=== PATIENT | female | born 1955 | race Caucasian/White ===

== ENCOUNTER → 2016-06-10 | Outpatient (CLI) | payer OTHER, BC ==
[~2016-06-10] MED LIST: ATOR40TA64 PO; DOCU-175 PO; HYDR-4246 PO; NAPR220T PO; OMEG100016 PO; TRIA1CAP6 PO
--- NOTE | 2016-06-11 09:30 | DI ---
Indication: ITS.REASON: S89.92XA twisting injury with medial knee pain for one to two months. PROCEDURE: MRI KNEE LEFT W/O CONTRAST: Encounter: Initial Comparison: Left knee radiographs dated May 21, 2016 Technique: Multiplanar multisequence MR imaging of the left knee was performed without contrast. Findings: The lateral meniscus is intact. There is an extensive tear of the posterior root of the medial meniscus with mild extrusion. The ACL and PCL are intact. The MCL and lateral collateral ligament complex are intact. The extensor mechanism is maintained. Bone marrow edema within the central and medial tibial plateau. No discrete fracture line identified. The cartilage of the lateral compartment is maintained. Medial compartment cartilage is intact. Patellofemoral compartment shows mild thinning in the median ridge and medial facet. No joint effusion or Cross's cyst. Muscular signal intensity is grossly normal. Impression: Posterior root tear of the medial meniscus. .
== END ==
LOC: IMA 18:34
PROVIDERS: ATTEND Orthopaedic Surgery
DX: S83.242A Other tear of medial meniscus, current injury, left knee, initial encounter (principal); X50.1XXA Overexertion from prolonged static or awkward postures, initial encounter; Y93.39 Activity, other involving climbing, rappelling and jumping off; Y92.530 Ambulatory surgery center as the place of occurrence of the external cause; Y99.0 Civilian activity done for income or pay

== ENCOUNTER → 2016-07-16 | Outpatient (CLI) | payer OTHER, BC ==
[2016-07-16 16:06] LABS: BASOPHILS % (AUTO) 0.6 % (0-2); EOSINOPHILS # (AUTO) 0.1 T/MM3 (0-0.5); EOSINOPHILS % (AUTO) 1.2 % (0-4); HGB - HEMOGLOBIN 12.8 GM/DL (12-16); IMMATURE GRANULOCYTE # (AUTO) 0.01 T/MM3 (0.00-0.03); IMMATURE GRANULOCYTE % (AUTO) 0.2 % (0.0-0.5); LYMPHOCYTES # (AUTO) 2.1 T/MM3 (1-4.8); LYMPHOCYTES % (AUTO) 32.5 % (23-45); MEAN CORPUSCULAR HGB 29.7 UUG (26-34); MEAN CORPUSCULAR HGB CONC(MCHC 32.8 GM/DL (31-37); MEAN CORPUSCULAR VOLUME 90.5 UM3 (80-100); MEAN PLATELET VOLUME 12.1 UM3 (9.4-12.4); MONOCYTES # (AUTO) 0.4 T/MM3 (0-0.8); MONOCYTES % (AUTO) 5.5 % (0-9.0); RED BLOOD COUNT 4.31 M/MM3 (4.00-5.20); WBC - WHITE BLOOD COUNT 6.6 T/MM3 (4.5-11.0)
[2016-07-16 16:11] LABS: ANION GAP 11 MEQ/L (5-15); BUN/CREATININE RATIO 17 RATIO (6-26); CALCIUM 9.8 MG/DL (8.4-10.2); CHLORIDE 100 MEQ/L (98-107); CO2 - CARBON DIOXIDE 30 MEQ/L (22-30); CREATININE 1.1 MG/DL (0.7-1.2); GLOMERULAR FILTRATION RATE 50; GLUCOSE 97 MG/DL (65-110); POTASSIUM 4.3 MEQ/L (3.6-5); SODIUM 141 MEQ/L (134-144)
== END ==
LOC: IMA 15:35
PROVIDERS: ATTEND Orthopaedic Surgery
DX: Z01.812 Encounter for preprocedural laboratory examination (principal)
CPT/HCPCS: 36415; 80048; 85025; 93005

== ENCOUNTER 2016-08-05 08:55 | Day surgery (SDC) | payer OTHER, BC ==
[2016-08-05] VITALS (13 sets, daily range): BP systolic 119–161; BP diastolic 57–78; PULSE 60–98; RESP 11–18; TEMP 96.9–97.8; O2SAT 97–100; Ht 149.9 cm; Wt 68.8 kg
[~2016-08-05] VITALS: Ht 149.9 cm; Wt 68.8 kg
[~2016-08-05 08:55] MED LIST changes: +ACET-2723 PO; +CEFAZOLIN 1 GRAM INJECTION IV ONE; -DOCU-175 PO; -HYDR-4246 PO; +LIDOCAINE 1% (10mg/ml) 2ml SDV INJ ONE; +LR 1,000 ML IV SCH
--- OUTSIDE RECORDS SUMMARY | 2016-08-05 09:00 | XMS REPORT | Continuity of Care Document ---
Author Author [facility] Organization [facility] Address Unknown Phone Unavailable Support Name Relationship Address Phone JAMIE MONZON MD Caregiver [address] [facility] [address] [place] [address] Unavailable SUE COLE DO Caregiver [address] [place] [address] Unavailable JADON GIANG Next Of Kin [address] [place] [id number] C Insurance Providers Guarantor Brandon Giang Address [address] [place] [address] C Email [email or web address] Policy Number [id number] Subscriber's Name Brandon Giang Relationship 18 Self Advance Directives Directive Response Recorded Date/Time Advanced Directives Type None 05/21/16 1:10pm Chief Complaint and Reason for Visit Chief Complaint Lower Extremity Pain Reason for Visit Left knee pain Problems Active Problems Medical Problem Onset Date Status Needle stick injury Unknown Acute Past Problems Medical Problem Onset Date Left knee pain Unknown Medications Current Home Medications Medication Dose Units Route Directions Days Qty Instructions Start Date Atorvastatin Calcium 40 Mg Tablet 40 Tab Oral Bedtime 05/21/16 Docusate Sodium 100 Mg Capsule 100 Cap Oral Daily 05/21/16 Hydrocodone/Acetaminophen ([place] 5-325 Tablet) 5-325 Tablet 1 Tab Oral Every 6 Hours as needed for Pain 12 Tablet 05/21/16 Naproxen Sodium (Naproxen 220MG) 220 Mg Tablet 220 Mg Oral Every 12 Hours as needed for Prn Orders 05/21/16 [place]-3 Fatty Acids ([place]-3) 1,000 Mg Capsule 1,200 Mg Oral Daily 01/22/08 Triamterene/Hydrochlorothiazid (Triamterene-Hctz 37.5-25 Mg Cp) 1 Each Capsule 0.5 Tab Oral Qd 05/21/16 Social History Social History Problem Response Recorded Date/Time Onset Date Status Hx Substance Use No 05/21/2016 1:30pm Not Applicable Not Applicable Hx Alcohol Use Y ONE/WK 05/21/2016 1:30pm Not Applicable Not Applicable Query Response Start Date Stop Date Smoking Status Never smoker Hospital Discharge Instructions No hospital discharge instructions. Plan of Care Discharge Date 05/21/16 2:10pm Disposition 01 DISCHARGED HOME, SELF-CARE Condition at Discharge Stable Instructions/Education Provided Knee Pain (ED) Prescriptions See Medication Section Referrals JAMIE MONZON MD Address: [address] [place] [address] [place] [address] Additional Instructions/Education Continue to ice and elevate the left leg. I do want you to take the Naproxen on a schedule and use the [place] as needed for severe pain. Call Dr Monzon's office for follow up this week or follow up with worklaredo's comp provider. If any other issues/concerns then return to ER for reevaluation. Care Plan and Goals Physician Care Plan Problem:Left Knee Pain Goal: Follow up with primary care provider Instructions: Take medications and follow care plan as discussed/written Functional Status No functional status results. Allergies, Adverse Reactions, Alerts Allergen Type Severity Reaction Status Last Updated No Known Drug Allergies Allergy Unknown Active 01/04/13 Immunizations Query Response on File Recorded Date/Time Hx Influenza Vaccination Y 200701/20/08 1:17pm Hx Pneumococcal Vaccination No 01/20/08 1:17pm Hx Influenza Vaccination Y 200701/20/08 1:17pm Influenza Vaccine Hx 12/201505/21/16 1:36pm Vital Signs Acute Vital Signs Vital Response Date/Time Temperature (Fahrenheit) 98.2 deg F (96.8 - 99.1) 05/21/2016 2:10pm Temperature (Calculated Celsius) 36.21786 degrees C (36.0 - 37.3) 05/21/2016 2:10pm Pulse Rate (adult) 80 bpm (60 - 100) 05/21/2016 2:10pm Respiratory Rate 16 breaths/min (10 - 20) 05/21/2016 2:10pm O2 Sat by Pulse Oximetry 95 % (90 - 100) 05/21/2016 2:10pm Blood Pressure 149/69 mm Hg 05/21/2016 2:10pm Height (Feet) 4 feet 05/21/2016 1:21pm Height (Inches) 10.00 inches 05/21/2016 1:21pm Weight (Kilograms) 67.300 kg 05/21/2016 1:21pm Body Mass Index (BMI) 31.0 05/21/2016 1:21pm Results Laboratory Results Test Name Result Units Flags Reference Collection Date/Time Result Date/ Time Comments White Blood Count 5.9 T/MM3 4.5-11.0 03/28/2016 8:03am 03/28/2016 8: 09am Red Blood Count 4.61 M/MM3 4.00-5.20 03/28/2016 8:0303/28/2016 8: 09am Hemoglobin 13.6 GM/DL 12-16 03/28/2016 8:03am 03/28/2016 8:09am Hematocrit 41.8 % 36-46 03/28/2016 8:0303/28/2016 8:09am Mean Corpuscular Volume 90.7 UM3 80-100 03/28/2016 8:03/28/2016 8: 09am Mean Corpuscular Hemoglobin 29.5 UUG 26-34 03/28/2016 8:032016 8:09am Mean Corpuscular Hemoglobin Concent 32.5 GM/DL 31-37 03/28/2016 8:03am 03/28/2016 8:09am RDW Standard Deviation 43.0 FL 36.9-50.2 03/28/2016 8:03am 03/28/2016 8 :09am Platelet Count 252 T/MM3 130-400 03/28/2016 8:0303/28/2016 8:09am Mean Platelet Volume 11.7 UM3 9.4-12.4 03/28/2016 8:03/28/2016 8: 09am Neutrophils (%) (Auto) 59.7 % 33-66 03/28/2016 8:03am 03/28/2016 8: 09am Lymphocytes (%) (Auto) 31.2 % 23-45 03/28/2016 8:0303/28/2016 8: 09am Monocytes (%) (Auto) 6.9 % 0-9.0 03/28/2016 8:03am 03/28/2016 8:09am Eosinophils (%) (Auto) 1.5 % 0-4 03/28/2016 8:03am 03/28/2016 8:09am Basophils (%) (Auto) 0.5 % 0-2 03/28/2016 8:03am 03/28/2016 8:09am Immature Granulocyte % (Auto) 0.2 % 0.0-0.5 03/28/2016 8:03am 2016 8:09am Absolute Neutrophils (auto) 3.5 T/MM3 1.8-7.7 03/28/2016 8:03am 2016 8:09am Absolute Lymphocytes (auto) 1.9 T/MM3 1-4.8 03/28/2016 8:03am 2016 8:09am Absolute Monocytes (auto) 0.4 T/MM3 0-0.8 03/28/2016 8:03am 03/28/2016 8:09am Absolute Eosinophils (auto) 0.1 T/MM3 0-0.5 03/28/2016 8:03am 2016 8:09am Absolute Basophils (auto) 0.0 T/MM3 0-0.2 03/28/2016 8:03am 03/28/2016 8:09am Absolute Immature Granulocyte (auto 0.01 T/MM3 0.00-0.03 03/28/2016 8: 03am 03/28/2016 8:09am Icterus Index < 2 0-7 03/28/2016 8:03am 03/28/2016 8:21am Chemistry Specimen Hemolysis < 15 0-25 03/28/2016 8:03am 03/28/2016 8 :21am 0-25: Specimen Exhibited No Hemolysis. Turbidity < 20 0-20 03/28/2016 8:03am 03/28/2016 8:21am Sodium Level 141 MEQ/L 134-144 03/28/2016 8:03am 03/28/2016 8:21am Potassium Level 3.9 MEQ/L 3.6-5 03/28/2016 8:03am 03/28/2016 8:21am Chloride Level 99 MEQ/L 98-107 03/28/2016 8:03am 03/28/2016 8:21am Carbon Dioxide Level 32 MEQ/L H 22-30 03/28/2016 8:03am 03/28/2016 8: 21am Anion Gap 10 MEQ/L 5-15 03/28/2016 8:03am 03/28/2016 8:21am Blood Urea Nitrogen 16.0 MG/DL 7-17 03/28/2016 8:0303/28/2016 8: 21am Creatinine 0.8 MG/DL 0.7-1.2 03/28/2016 8:03/28/2016 8:21am BUN/Creatinine Ratio 20 RATIO 6-26 03/28/2016 8:03/28/2016 8:21am Glomerular Filtration Rate Calc 73 03/28/2016 8:03/28/2016 8: 21am Glucose Level 98 MG/DL 65-110 03/28/2016 8:0303/28/2016 8:21am Calculated Osmolality 272 MOSM/KG 261-280 03/28/2016 8:03/28/2016 8:21am Calcium Level 9.7 MG/DL 8.4-10.2 03/28/2016 8:03/28/2016 8:21am Total Bilirubin 0.90 MG/DL 0.20-1.30 03/28/2016 8:03/28/2016 8: 21am Alkaline Phosphatase 88 U/L 38-126 03/28/2016 8:03/28/2016 8:21am Total Protein 7.4 G/DL 6.3-8.2 03/28/2016 8:03/28/2016 8:21am Albumin 4.5 G/DL 3.5-5.0 03/28/2016 8:03/28/2016 8:21am Globulin 2.9 G/DL 2.4-3.6 03/28/2016 8:03/28/2016 8:21am Albumin/Globulin Ratio 1.6 RATIO 1.1-2.2 03/28/2016 8:03/28/2016 8 :21am Aspartate Amino Transf (AST/SGOT) 26 U/L 14-36 03/28/2016 8:2016 8:21am Alanine Aminotransferase (ALT/SGPT) 39 U/L 9-52 03/28/2016 8:03/28 8:21am Cholesterol Level 184 MG/DL 132-199 03/28/2016 8:04/02/2016 2: 38am Triglycerides Level 63 MG/DL 35-135 03/28/2016 8:04/02/2016 2: 38am HDL Cholesterol Direct 87 MG/DL H 40-60 03/28/2016 8:03am 04/02/2016 2: 38am LDL Cholesterol, Calculated 84.4 66-159 03/28/2016 8:03am 04/02/2016 2:38am VLDL Cholesterol 12.6 MG/DL 0-28 03/28/2016 8:03am 04/02/2016 2:38am Cholesterol/HDL Ratio 2.1 RATIO 0-4.0 03/28/2016 8:03am 04/02/2016 2: 38am Name: BRANDON GIANG Unit #: [id number] : 1955 Sex: F Admit Date: Loc / Svc: ED Discharge Date: DIAGNOSTIC IMAGING REPORT Report #: [id number] [facility] [place] Indication: ITS.REASON: left knee pain PROCEDURE: KNEE LEFT 3 VIEWS: Encounter: Initial Comparison: None Findings: There is no acute fracture, dislocation or malalignment identified. Impression: No acute osseous abnormality. . Procedures No known history of procedures. Encounters Encounter Location Arrival/Admit Date Discharge/Depart Date Attending Provider Departed Emergency Room [facility] 05/21/16 1:09pm 05/21/16 2: 10pm SUE COLE DO Registered [facility] 04/30/16 11:12am DAVID FANG MD [facility] 03/28/16 7:55am JAMIE MONZON MD Recent Diagnosis
[2016-08-05 09:31] LABS: BUN/CREATININE RATIO 24 RATIO (6-26); CALCIUM 9.4 MG/DL (8.4-10.2); CO2 - CARBON DIOXIDE 30 MEQ/L (22-30); CREATININE 0.7 MG/DL (0.7-1.2); GLOMERULAR FILTRATION RATE 85; GLUCOSE 81 MG/DL (65-110)
[2016-08-05 09:43] LABS: ANION GAP 13 MEQ/L (5-15); CHLORIDE 102 MEQ/L (98-107); POTASSIUM 3.9 MEQ/L (3.6-5); SODIUM 145 MEQ/L (134-144)
--- NOTE | 2016-08-05 10:05 | ANESPREOP ---
Anesthesia Record Date and Time DATE: 08/05/16 TIME: 09:56 Proposed Surgical Procedure LT. KNEE ARTHROSCOPY/PLM/MORALES NPO since: mn Allergies: Coded Allergies: No Known Drug Allergies (Verified Allergy, Unknown, 08/05/16) Ht/Wt/BMI Height: 4 ' 11.00 " Weight: 68.800 kg BMI: 30.6 kg/m2 Vital Signs Date Time Temp Pulse Resp B/P Pulse Ox O2 Delivery O2 Flow Rate FiO2 08/05/16 09:33 68 152/71 08/05/16 09:06 97.8 13 98 Room Air Medications Inpatient Medications Current Medications Medications (Trade) Dose Ordered Sig/Shania Start Time Stop Time Status Last Admin Dose Admin Lactated Ringer's (Lactated Ringers) 1,000 ml @ 50 mls/hr Q20H 08/05/16 07:00 08/05/16 09:30 50 MLS/HR Acetaminophen (Tylenol Extra Strength) 500 Mg Tablet, 2 TAB PO DAILY, (Reported) Last Taken: on 08/03/16 2300 Acetaminophen (Tylenol Extra Strength) 500 Mg Tablet, 1 TAB PO HS, (Reported) Last Taken: on 08/04/16 2300 Atorvastatin Calcium (Atorvastatin Calcium) 40 Mg Tablet, 40 TAB PO HS, (Reported) Last Taken: on 08/04/16 1800 Naproxen Sodium (Naproxen 220mg) 220 Mg Tablet , 220 MG PO Q12H PRN for PRN ORDERS, (Reported) Last Taken: on 07/15/16 [place]-3 Fatty Acids ([place]-3) 1,000 Mg Capsule, 1, 200 MG PO DAILY, (Reported) Last Taken: on 07/15/16 Triamterene/Hydrochlorothiazid (Triamterene-Hctz 37.5-25 mg Cp) 1 Each Capsule, 0.5 TAB PO QD, (Reported) Last Taken: on 08/05/16 0700 Currently on Beta Lexy: No Medical/Surgical History Anesthesia PMH: Reports: *Hypertension (CONTROLLED WITH MEDS), Anesthesia Reactions (SPINAL DENNISON,NO AIRWAY ISSUES), Reflux (POSSIBLY) Smoking Status: Never smoker Use Chewing Tobacco?: No Second Hand Exposure: No Substance Use Type: does not use Alcohol Intake: none HX of Last Menstrual Period: AROUND AGE 49 Past Surgical History Orthopedic Surgeries: Abdominal Surgeries: Genitourinary Surgeries: Cardiac Surgeries: Endocrine Surgeries: Reproductive Surgeries: Yes - C-SECTIONS X2 Neurological Surgeries: Ear Surgeries: Nose Surgeries: Throat Surgeries: Yes - T&A AGE 5 Other Surgeries: Yes - colonoscopy Anesthesia Adverse Reactions: FOUND none Family Hx of Anesthesia Advers: none Hx of Motion Sickness: No Pertinent Findings Laboratory Tests 08/05/16 09:13 Physical Exam Respiratory: Bilat breath sounds equal, Lungs clear Cardiovascular: FOUND Regular rate, rhythm Airway Assessment Mallampati Score: II TMD: 3 Fingerbreadths Neck Extension: Good Overall Assessment: No Airway Concerns ASA: 2 Plan Anesthesia Plan: LMA, GETA Discussion Discussed risks/options/alternatives of anesthesia and questions answered. Patient consents. Nursing pain assessment noted. Present: Family Member Attestation Statement Prior to the delivery of any anesthetic medication, I examined the patient, developed the plan, obtained the patient's consent and discussed the risk and benefits of the procedure with the patient/guardian. JOHNSON BERMAN CRNA August 05, 2016 10:03
[2016-08-05] MEDS ORDERED: MEPERIDINE 100 mg/ml VIAL ONE (10:22)
[2016-08-05] MEDS ORDERED: BUPIVACAINE 0.25% (2.5mg/ml) INJ 30ml SDV ONE (10:23)
[2016-08-05] MEDS ORDERED: FENTANYL 100mcg/2ml INJECTION ONE ×2 (11:05→11:18)
[2016-08-05] MEDS ORDERED: PROPOFOL 200mg 20 ML IV ONE (11:14)
--- NOTE | 2016-08-05 11:44 | PDPROCED ---
Immediate Operative Note DATE: 08/05/16 TIME: 11:43 Preop Diagnosis: LEFT KNEE MMT, PRIMARY OA Postop Diagnosis: Left knee MMT, primary OA Surgical Procedures: L Knee Arthroscopy (PMM, limited synovectomy, chondroplasty [facility]) Surgeon: Stephane Fiberglass Product Tester: BRYCE Krishna Anesthesia: General Complications: none Estimated Blood Loss see anesthesia BRONWYN ROSS August 05, 2016 11:43
[2016-08-05] MEDS ORDERED: ONDA4TAB4 PO (11:45)
[2016-08-05] MEDS ORDERED: MELO7.5T12 PO (11:45)
[2016-08-05] MEDS ORDERED: HYDR-4246 PO (11:45)
[2016-08-05] MEDS ORDERED: KETOROLAC 30mg/ml INJECTION IV ONE (12:15)
--- NOTE | 2016-08-05 12:35 | NUR ---
CARE REPORT TO Manny MAN RN TO ASSUME CARE OF PT.
--- NOTE | 2016-08-05 12:58 | ANESPO ---
Post-Op Note Date 08/05/16 Time: 12:58 Status Pt Participated in Evaluation: Pt participated in person Vital Signs Date Time Temp Pulse Resp B/P Pulse Ox O2 Delivery O2 Flow Rate FiO2 08/05/16 12:45 68 18 154/67 97 Room Air 08/05/16 12:13 97.5 08/05/16 11:55 6.00 Respiratory Function: Airway patent Mental Status: Alert/oriented Pain Level Intensity: 2 Hydration: Taking po fluids Complications during Recovery None apparent Follow-Up Instructions Instructions Per Surgeon JOHNSON BERMAN CRNA August 05, 2016 12:58
--- NOTE | 2016-08-05 15:10 | OPNOTEF ---
DATE OF PROCEDURE 08/05/2016 PREOPERATIVE DIAGNOSES 1. Left knee posterior root medial meniscus tear, traumatic. 2. Left knee medial compartment chondromalacia. POSTOPERATIVE DIAGNOSES 1. Left knee posterior root medial meniscus tear, traumatic. 2. Left knee grade II-III chondromalacia, medial femoral condyle. 3. 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 4. Left knee medial retinacular plica. PROCEDURE 1. Left knee arthroscopic partial medial meniscectomy . 2. Left knee arthroscopic limited synovectomy (plica excision). 3. Left knee arthroscopic shaving chondroplasty, medial femoral condyle, patella and femoral trochlea. SURGEON Jassi Calderón MD MAIL LIST PROCESSOR Tim Angel PA-C ANESTHESIA General. FLUIDS Please refer to Anesthesia chart. EBL Minimal. TOURNIQUET Please refer to Anesthesia chart. COMPLICATIONS None. CONDITION Stable to recovery room. DESCRIPTION OF PROCEDURE The patient was identified in the preoperative holding area. The operative extremity was identified and appropriately marked. The risks, benefits, alternatives and potential complications were discussed and informed consent was obtained. The patient was taken to the operating theatre, placed supine on the operating table. Appropriate cardiorespiratory monitors were applied. General anesthesia was induced. A tourniquet was applied high on the left thigh though not yet inflated. Left lower extremity was sterilely prepped and draped in the usual fashion. Surgical time-out was performed, confirmed with myself, the literacy education professor and circulating nurse. Preoperative antibiotics were given. Examination under anesthesia revealed full passive range of motion of the left knee. No evidence of instability. Trace effusion. The leg was elevated and the tourniquet was inflated. A standard inferolateral portal was established. The arthroscope was inserted. Sterile appearing synovial effusion comprised of approximately 10 ml of synovial fluid was expressed from the knee joint. The arthroscope was then inserted and the knee was insufflated with saline. Needle localization was utilized to establish an inferomedial portal. Diagnostic examination ensued. Moderate synovitis was present in the suprapatellar pouch, medial and lateral gutters. No evidence of loose bodies or debris. There was a large medial retinacular plica draping over the anterior aspect of the medial femoral condyle. A shaver was introduced and a limited synovectomy was performed, debriding this back to the level of the capsule. Patellofemoral joint was visualized noting a centrally tracking patella. There was some mild grade II and III change at the apex of the patella which was debrided with a shaver. The vast majority of the femoral trochlear cartilage appeared to be well maintained. Deep on the anterior aspect of the medial trochlear ridge there was noted to be an area of grade III articular cartilage change with a small chondral flap. This was debrided with a shaver as well. This measured approximately 5 mm in diameter. The medial compartment was then entered. There was noted to be diffuse grade II and mild grade III change to the medial femoral condyle. Tibial articular cartilage was fairly well maintained. There was an avulsion at the root of the posterior horn of the medial meniscus approximately 7 mm off of the root attachment. This was a complete radial split tear. The patient had discussed preoperatively she did not wish to undergo a repair. Therefore a series of raj and biters were utilized to debulk the posterior horn of the medial meniscus as a partial medial meniscectomy was performed. The knee was taken through range of motion while visualizing, noting we were unable to capture or impinge the remaining meniscal fragment. The body and anterior horn of the meniscus were intact. The intercondylar notch was then visualized noting an intact ACL and PCL. Lateral compartment was entered noting normal lateral articular cartilage and normal lateral meniscus. Knee was copiously lavaged, irrigated and drained. All arthroscopic instruments were removed. Portals were closed with nylon sutures. Marcaine was injected around the portal sites and Marcaine cocktail in the joint. Sterile dressings were applied followed by an Gagan bandage. Tourniquet was deflated. The patient was awakened from anesthesia and taken to the recovery room in stable and satisfactory condition. STAN
== END 2016-08-05 13:00 | disposition home or self-care (01) ==
LOC: NSC 08:55
PROVIDERS: ATTEND Orthopaedic Surgery
DX: S83.242A Other tear of medial meniscus, current injury, left knee, initial encounter (principal); M94.262 Chondromalacia, left knee; M67.52 Plica syndrome, left knee; I10 Essential (primary) hypertension; E78.00 Pure hypercholesterolemia, unspecified; Z79.899 Other long term (current) drug therapy; X50.9XXA Other and unspecified overexertion or strenuous movements or postures, initial encounter; Y99.0 Civilian activity done for income or pay
CPT/HCPCS: 29881; 36415; 80048; G0289; J0690; J1885; J2175; J2704; J3010; J7120